=== PATIENT | male | born 1985 | race African-American/Black ===

== ENCOUNTER 2017-03-19 14:05 | Emergency (ER) | payer SELFPAY ==
[~2017-03-19] VITALS: Ht 167.6 cm; Wt 87.0 kg
[~2017-03-19 14:05] MED LIST: NAPR500 PO; PENVK500 PO; PRED20 PO
[2017-03-19 14:09] VITALS: BP 133/67; PULSE 89; RESP 18; TEMP 98.7; O2SAT 100
--- NOTE | 2017-03-19 15:41 | PD ---
HPI Chief Complaint: Cold / Flu Symptoms Time Seen by Provider: 15:30 Travel History International Travel<30 days: No Contact w/Intl Traveler<30days: No Traveled to known affect area: No History of Present Illness HPI 32-year-old male presents for evaluation of sore throat. Symptoms started 3 days ago. Associated with chills, myalgias, low-grade fevers as well as nausea , occasional vomiting and watery stool. Denies rash, cough, abdominal pain, recent travel. No sick contacts. He has been using DayQuil but his symptoms have persisted which prompted evaluation. No other complaints. PFSH Past Medical History Diminished Hearing: No Respiratory: Yes (ASTHMA A CHILD) Immunizations Current: Yes Social History Alcohol Use: No Tobacco Use: No Substance Use: No Allergies-Medications (Allergen,Severity, Reaction): Coded Allergies: No Known Allergies (Verified , 11/23/15) Reported Meds & Prescriptions Reported Meds & Active Scripts Active Amoxicillin 875 Mg Tab 875 Mg PO BID 10 Days Penicillin V Potassium 500 Mg Tab 500 Mg PO TID Naprosyn (Naproxen) 500 Mg Tab 500 Mg PO BID PRN Deltasone (Prednisone) 20 Mg Tab 40 Mg PO DAILY Review of Systems Except as stated in HPI: all other systems reviewed are Neg Physical Exam Narrative GENERAL: Well-developed well-nourished male in no acute distress SKIN: Warm and dry. HEAD: Atraumatic. Normocephalic. EYES: Pupils equal and round. No scleral icterus. No injection or drainage. ENT: No nasal bleeding or discharge. Mucous membranes pink and moist. Oral pharyngeal erythema is noted. Uvula midline with no mass effect. NECK: Trachea midline. No JVD. No lymphadenopathy CARDIOVASCULAR: Regular rate and rhythm. No murmur appreciated. RESPIRATORY: No accessory muscle use. Clear to auscultation. Breath sounds equal bilaterally. GASTROINTESTINAL: Abdomen soft, non-tender, nondistended. Hepatic and splenic margins not palpable. MUSCULOSKELETAL: No obvious deformities. No clubbing. No cyanosis. No edema. NEUROLOGICAL: Awake and alert. No obvious cranial nerve deficits. Motor grossly within normal limits. Normal speech. PSYCHIATRIC: Appropriate mood and affect; insight and judgment normal. Data Data Last Documented VS Vital Signs Date Time Temp Pulse Resp B/P (MAP) Pulse Ox O2 Delivery O2 Flow Rate FiO2 03/19/17 14:09 98.7 89 18 133/67 (89) 100 Room Air Orders Orders Group A Rapid Strep Screen (03/19/17 14:18) Complete Blood Count With Diff (03/19/17 14:18) Basic Metabolic Panel (Bmp) (03/19/17 14:18) Oral Rehydration (03/19/17 15:38) Ibuprofen (Motrin) (03/19/17 15:45) Ondansetron Odt (Zofran Odt) (03/19/17 15:45) Potassium Chloride (Kcl) (03/19/17 16:15) Ed Discharge Order (03/19/17 16:28) Labs Laboratory Tests Test 03/19/17 15:04 White Blood Count 17.8 TH/MM3 Red Blood Count 4.70 MIL/MM3 Hemoglobin 13.9 GM/DL Hematocrit 42.0 % Mean Corpuscular Volume 89.3 FL Mean Corpuscular Hemoglobin 29.6 PG Mean Corpuscular Hemoglobin Concent 33.2 % Red Cell Distribution Width 12.3 % Platelet Count 260 TH/MM3 Mean Platelet Volume 8.2 FL Neutrophils (%) (Auto) 86.7 % Lymphocytes (%) (Auto) 7.3 % Monocytes (%) (Auto) 5.8 % Eosinophils (%) (Auto) 0.1 % Basophils (%) (Auto) 0.1 % Neutrophils # (Auto) 15.5 TH/MM3 Lymphocytes # (Auto) 1.3 TH/MM3 Monocytes # (Auto) 1.0 TH/MM3 Eosinophils # (Auto) 0.0 TH/MM3 Basophils # (Auto) 0.0 TH/MM3 CBC Comment DIFF FINAL Differential Comment Blood Urea Nitrogen 7 MG/DL Creatinine 1.05 MG/DL Random Glucose 212 MG/DL Calcium Level 8.7 MG/DL Sodium Level 137 MEQ/L Potassium Level 3.2 MEQ/L Chloride Level 99 MEQ/L Carbon Dioxide Level 28.4 MEQ/L Anion Gap 10 MEQ/L Estimat Glomerular Filtration Rate 99 ML/MIN [facility] Medical Decision Making Medical Screen Exam Complete: Yes Emergency Medical Condition: Yes Medical Record Reviewed: Yes Differential Diagnosis Pharyngitis, tonsillitis, peritonsillar abscess, infectious mononucleosis, herpangina, epiglottitis, influenza, gastroenteritis Narrative Course The patient is nontoxic in appearance. He has obvious pharyngitis on examination. Lab work was ordered in triage and is currently pending on examination. Rapid strep screen has been performed. The patient will be given oral hydration as well as ibuprofen. Rapid strep screen is positive. He has associated leukocytosis. He is tolerating oral fluids. He will be discharged with amoxicillin. Diagnosis Primary Impression: Streptococcal pharyngitis Additional Instructions: Medication as prescribed. Stay well hydrated well-nourished. Tylenol and Motrin for fever. Return for any emergent medical conditions. Med/Other Pt SpecificInfo: Prescription(s) given Scripts Amoxicillin (Amoxicillin) 875 Mg Tab 875 MG PO BID for Infection for 10 Days, #20 TAB 0 Refills Prov: Spenser Sibley MD 03/19/17 Disposition: 01 DISCHARGE HOME Condition: Stable Bebeto Shah Mar 19, 2017 15:41
[2017-03-19] MEDS ORDERED: ONDANSETRON ODT 4 MG TAB PO ONE (15:45)
[2017-03-19] MEDS ORDERED: IBUPROFEN 800 MG TAB PO ONE (15:45)
[2017-03-19 15:48] LABS: AUTOMATED NEUTROPHIL # 15.5 TH/MM3 (1.8-7.7); BASOPHIL % 0.1 % (0.0-2.0); EOSINOPHIL % 0.1 % (0.0-4.0); HEMO FLAGS DIFF FINAL; LYMPH % 7.3 % (9.0-44.0); LYMPHOCYTE # 1.3 TH/MM3 (1.0-4.8); MEAN CELL VOLUME 89.3 FL (80.0-100.0); MEAN CORPUSCULAR HEMOGLOBIN 29.6 PG (27.0-34.0); MEAN CORPUSCULAR HGB CONC 33.2 % (32.0-36.0); MONO % 5.8 % (0.0-8.0); NEUT % 86.7 % (16.0-70.0); PLATELET COUNT 260 TH/MM3 (150-450); RED CELL DISTRIBUTION WIDTH 12.3 % (11.6-17.2); WHITE BLOOD COUNT 17.8 TH/MM3 (4.0-11.0)
[2017-03-19 16:00] VITALS: BP 113/81; PULSE 92; RESP 18; O2SAT 99
[2017-03-19 16:01] LABS: BICARBONATE 28.4 MEQ/L (21.0-32.0); POTASSIUM 3.2 MEQ/L (3.5-5.1)
[2017-03-19] MEDS ORDERED: POTASSIUM CHLORIDE 20 MEQ CONTROLLED RELEASE TAB PO ONE (16:15)
[2017-03-19] MEDS ORDERED: AMOX875T PO (16:28)
[2017-03-19 17:11] VITALS: BP 113/81
== END 2017-03-19 17:16 | disposition home or self-care (01) ==
LOC: NEPD 14:05
DX: J02.0 Streptococcal pharyngitis (principal)
CPT/HCPCS: 80048; 85025; 87880; 99283